=== PATIENT | male | born 1965 | race African-American/Black ===

== ENCOUNTER 2017-02-24 12:29 | Emergency (ER) | payer SELFPAY ==
[~2017-02-24] VITALS: Ht 175.3 cm; Wt 84.8 kg
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
[2017-02-24 14:02] LABS: URINE SOURCE CLEAN CATCH
[2017-02-24 14:06] LABS: BASOPHIL% 0.6 % (0-2.5); EOSINOPHIL# 0.1 X10e3 (0-0.7); EOSINOPHIL% 2.5 % (0.0-7.0); HEMATOCRIT 39.2 % (38.0-50.0); HEMOGLOBIN 13.3 gm/dL (13.0-16.0); LYMPHOCYTE# 2.1 X10e3 (1.0-3.5); LYMPHOCYTE% 41.2 % (17.0-45.0); MEAN CORPUSCULAR HGB CONC 34.1 g/dL (30-36); MEAN PLATELET VOLUME 7.9 FL (6.5-11.5); MONOCYTE# 0.5 X10e3 (0-1.0); MONOCYTE% 10.1 % (3.0-12.0); NEUTROPHIL# 2.3 X10e3 (1.5-7.1); NEUTROPHIL% 45.6 % (40-75); PLATELET COUNT 157 X10e3 (140-420); RED BLOOD COUNT 4.31 X10e (3.90-5.60); RED CELL DISTRIBUTION WIDTH 13.8 % (11.0-15.5); WHITE BLOOD COUNT 5.2 X10e3 (4.0-10.5)
[2017-02-24 14:07] LABS: DIFF IND NO; URINE APPEARANCE CLEAR; URINE BILIRUBIN NEG (NEG); URINE BLOOD 3+ (NEG); URINE COLOR DK YELLOW; URINE GLUCOSE NEG (NEG); URINE KETONE NEG (NEG); URINE LEUKOCYTE ESTERASE 1+ (NEG); URINE NITRATE NEG (NEG); URINE PROTEIN TRACE (NEG)
[2017-02-24 14:08] LABS: CULTURE INDICATED? YES; URBCS1 AUWI 100-200 /[HPF] (0-2); URINE BACTERIA AUWI NEG (NEGATIVE); URINE SQUAMOUS EPITHELIAL CELL NONE SEEN /[HPF]
[2017-02-24 14:28] LABS: GLOM FILT RATE Estimated 100.6 mL/min (>60); POTASSIUM 3.8 mmol/L (3.5-5.1)
== END 2017-02-24 16:20 | disposition home or self-care (01) ==
LOC: CED 12:29
PROVIDERS: Emergency Medicine
DX: S80.02XA Contusion of left knee, initial encounter (principal); V29.40XA Motorcycle driver injured in collision with unspecified motor vehicles in traffic accident, initial encounter
CPT/HCPCS: 36415; 70450; 71010; 72072; 72100; 72125; 72170; 73030; 73562; 80048; 81003; 82947; 85025; 87086; 99284